=== PATIENT | female | born 1990 | race Hispanic/Latino ===

== ENCOUNTER 2021-09-19 09:33 | Outpatient (CLI) | payer OTHER | END 2021-09-19 09:34 | disposition home or self-care (01) | LOC: BICULT 09:33 | PROVIDERS: ATTEND Family Medicine | DX: Z34.82 Encounter for supervision of other normal pregnancy, second trimester (principal); Z3A.21 21 weeks gestation of pregnancy | CPT/HCPCS: 76805 ==